=== PATIENT | male | born 1935 | race Caucasian/White ===

== ENCOUNTER 2016-10-01 10:00 | Outpatient (RCR) | payer MEDICARE, BC | END 2016-10-04 | disposition still patient (30) | LOC: WSPT | DX: G20 Parkinson's disease (principal) | CPT/HCPCS: G8978-GP; G8979-GP ==

== ENCOUNTER 2016-10-08 10:00 | Outpatient (RCR) | payer MEDICARE, BC | END 2016-10-08 14:58 | disposition home or self-care (01) | LOC: WSPT 10:00 | DX: G20 Parkinson's disease (principal) | CPT/HCPCS: G8978-GP; G8979-GP ==

== ENCOUNTER 2019-11-28 08:15 | Outpatient (RCR) | payer MEDICARE, BC ==
[~2019-11-28 08:15] MED LIST: ASPIRIN 81M81 MG/TA2 PO; COZAAR100 MG PO; GLUCOPHAGE500 MG/TAB PO; HUMALOG100 U/ML SQ; LANTUS SOLOS100 U/ML SQ; MASON NATURAL2000 IU PO; NEURONTIN300 MG/CAP PO; OMNICEF 300MG300 MG PO; SINEMET 25/101 UDTAB PO; TOPROL XL 25MG25 MG PO; TOPROL XL 50MG50 MG PO; VITAMIN B-1000 MCG/T PO; ZOCOR 40MG40 MG PO; ZYRTEC 10MG10 MG PO
== END 2020-02-05 | disposition home or self-care (01) ==
LOC: WSPT
DX: G20 Parkinson's disease (principal)

== ENCOUNTER 2020-05-07 14:37 | Emergency (ER) | payer MEDICARE, BC ==
[~2020-05-07] VITALS: Ht 172.7 cm; Wt 81.8 kg
[2020-05-07 14:42] VITALS: BP 171/81; TEMP 98.2
[2020-05-07 17:00] VITALS: PULSE 63
== END 2020-05-07 17:00 | disposition home or self-care (01) ==
LOC: COL.ER 14:37
DX: S01.01XA Laceration without foreign body of scalp, initial encounter (principal); S80.212A Abrasion, left knee, initial encounter; E11.9 Type 2 diabetes mellitus without complications; R40.2410 Glasgow coma scale score 13-15, unspecified time; I10 Essential (primary) hypertension; Z79.4 Long term (current) use of insulin; Z79.82 Long term (current) use of aspirin; W10.9XXA Fall (on) (from) unspecified stairs and steps, initial encounter

== ENCOUNTER → 2020-05-14 | Outpatient (CLI) | payer MEDICARE, BC ==
[2020-05-14 10:33] VITALS: BP 164/80; PULSE 76; TEMP 96.1
== END ==
LOC: COL.ER 10:22
DX: Z48.02 Encounter for removal of sutures (principal)

== ENCOUNTER 2020-12-13 22:58 | Emergency (ER) | payer MEDICARE, BC ==
[~2020-12-13] VITALS: Ht 172.7 cm; Wt 81.8 kg
[2020-12-13 23:09] VITALS: TEMP 96.6
[2020-12-13] MEDS ORDERED: DITROPAN XL15 MG PO (23:21)
[2020-12-13] MEDS ORDERED: COZAAR100 MG PO (23:22)
[2020-12-14 02:02] VITALS: BP 181/74; PULSE 76
== END 2020-12-14 02:02 ==
LOC: COL.ER 22:58
DX: S01.01XA Laceration without foreign body of scalp, initial encounter (principal); G20 Parkinson's disease; E11.9 Type 2 diabetes mellitus without complications; I10 Essential (primary) hypertension; Z79.4 Long term (current) use of insulin; Z79.82 Long term (current) use of aspirin; W01.198A Fall on same level from slipping, tripping and stumbling with subsequent striking against other object, initial encounter

== ENCOUNTER → 2020-12-23 | Outpatient (CLI) | payer MEDICARE, BC ==
[~2020-12-23] MED LIST changes: +CEPHALEXIN500 M1 PO; +DITROPAN XL15 MG PO
[2020-12-23 10:55] VITALS: BP 195/73; PULSE 60; TEMP 96.7
== END ==
LOC: COL.ER 10:49
DX: Z48.02 Encounter for removal of sutures (principal)

== ENCOUNTER 2021-01-13 08:15 | Emergency (ER) | payer MEDICARE, BC ==
[~2021-01-13] VITALS: Ht 167.6 cm; Wt 81.8 kg
[~2021-01-13 08:15] MED LIST changes: -CEPHALEXIN500 M1 PO
[2021-01-13 08:29] VITALS: TEMP 97.4
[2021-01-13 09:18] VITALS: BP 128/87; PULSE 60
== END 2021-01-13 09:18 | disposition home or self-care (01) ==
LOC: COL.ER 08:15
DX: S51.012A Laceration without foreign body of left elbow, initial encounter (principal); S51.811A Laceration without foreign body of right forearm, initial encounter; G20 Parkinson's disease; Z79.82 Long term (current) use of aspirin; Z79.4 Long term (current) use of insulin; W18.39XA Other fall on same level, initial encounter; Y92.002 Bathroom of unspecified non-institutional (private) residence as the place of occurrence of the external cause

== ENCOUNTER 2021-01-21 13:59 | Emergency (ER) | payer MEDICARE, BC ==
[~2021-01-21] VITALS: Ht 172.7 cm; Wt 81.8 kg
[2021-01-21 14:12] VITALS: BP 140/62; PULSE 62; TEMP 97.3
[2021-01-21] MEDS ORDERED: CEPHALEXIN500 M1 PO (15:04)
== END 2021-01-21 15:11 | disposition home or self-care (01) ==
LOC: COL.ER 13:59
DX: T81.41XA Infection following a procedure, superficial incisional surgical site, initial encounter (principal); G20 Parkinson's disease

== ENCOUNTER → 2021-01-26 | Outpatient (CLI) | payer MEDICARE, BC ==
[~2021-01-26] MED LIST changes: +CEPHALEXIN500 M1 PO
[2021-01-26 14:25] VITALS: BP 133/70; PULSE 88; TEMP 98.4
== END ==
LOC: COL.ER 14:16
DX: Z48.02 Encounter for removal of sutures (principal)

== ENCOUNTER → 2022-07-06 | Outpatient (CLI) | payer MEDICARE, BC | LOC: COL.RAD 12:42 | DX: G20 Parkinson's disease (principal); G31.84 Mild cognitive impairment of uncertain or unknown etiology; M48.07 Spinal stenosis, lumbosacral region ==

== ENCOUNTER 2022-12-10 08:55 | Day surgery (SDC) | payer MEDICARE, BC ==
[~2022-12-10] VITALS: Ht 172.7 cm; Wt 77.1 kg
[2022-12-10] VITALS (7 sets, daily range): BP systolic 128–167; BP diastolic 59–74; PULSE 56–67; TEMP 97–98.3
[~2022-12-10 08:55] MED LIST changes: +GNC L-ARGININE500 MG PO; +LIPITOR 40MG TA40 MG PO; +NOVOLIN 70/30 710 ML SQ; +PLAVIX 75MG TAB75 MG PO; +ZEBETA 5MG5 MG PO; +ZYRTEC10MGSGL PO
[2022-12-10] MEDS ORDERED: LUETIN PO (09:41)
[2022-12-10] MEDS ORDERED: NATURAL E400 IU PO (09:42)
[2022-12-10] MEDS ORDERED: MULTI VITAMINS1 TAB PO (09:42)
[2022-12-10] MEDS ORDERED: DEMADEX 20MG20 M1 PO (09:42)
--- NOTE | 2022-12-10 09:56 | NUR ---
Initial visit; Patient and his thanked Software Tools Developer for looking in on him and offering prayer for a successful surgical procedure and a rapid and thorough recovery.
[2022-12-10] MEDS ORDERED: NORCO 325 MG-51 TAB PO (12:39)
--- NOTE | 2022-12-10 18:31 | NUR ---
[id number] PT TO [facility] FROM OR S/P OPEN LEFT INGUINAL HERNIA PLACED ON MONITOR, VSS ON 6L MASK, RESPONDS TO LOUD VOICE, DENIES PAIN/COMPLAINT. OP DRSG CDI RECEIVED REPORT AND ASSUMED CARE OF PT FROM [facility] AND ORRN AND DTR BRIEFLY TO BEDSIDE, WILL RETURN TO [facility] [employer] PT UPON DC PROVIDED ICE WATER PER REQUEST, DECLINING FOOD. INCONTINENT - DRY DISPOSABLE BRIEFS DONNED. WEANED OFF MASK TO NC AT 1305 TO MAINTAIN SAO2 ORDERED, FURTHER WEANED TO RA AT 1350. PT A&OX4 BY 1345, CONTINUES TO DENY COMPLAINT, REMAINS ON MONITOR WITH CALL LIGHT WITHIN REACH AND BED LOW AND LOCKED. FAMILY CONTACTED WITH ESTIMATED TIME OF DC OF 1400, ARRIVED TO HOSPITAL ~1420 AND AT BEDSIDE. PT HAS REMAINED A&O, NAD, VSS ON RA, TOLERATING PO, IS WITHOUT SIGNIFICANT COMPLAINT, DRSG CDI THRU OUT [facility]. ABLE TO COOPERATE WITH GETTING DRESSED AND STANDS FOR TRANSFER TO . NEW BRIEFS DONNED, PERICARE ADMIN. IV D/C'D. D/C INSTRUCTIONS, FOLLOW UP APPT SCHEDULING NEEEDS REVIEWED WITH PT/FAMILY AND HANDED TO SAME. ALL QUESTIONS AND CONCERNS ADDRESSED TO PT SATISFACTION. TAKEN TO EXIT VIA W/C WITH ALL BELONGINGS AND PAPERWORK IN HAND, ASSISTED INTO PASSENGER SEAT OF POV BY [facility]. DTR TO DRIVE HOME.
== END 2022-12-10 14:45 | disposition home or self-care (01) ==
LOC: SDCO 08:55
DX: K40.90 Unilateral inguinal hernia, without obstruction or gangrene, not specified as recurrent (principal); I10 Essential (primary) hypertension
CPT/HCPCS: C1781; J0690; J2704; J7030

== ENCOUNTER 2023-11-26 11:34 | Emergency (ER) | payer MEDICARE, BC ==
[~2023-11-26] VITALS: Ht 172.7 cm; Wt 81.8 kg
[~2023-11-26 11:34] MED LIST changes: +DEMADEX 20MG20 M1 PO; +LUETIN PO; +MULTI VITAMINS1 TAB PO; +NATURAL E400 IU PO; +NORCO 325 MG-51 TAB PO
[2023-11-26 11:36] VITALS: TEMP 98.1
[2023-11-26 14:00] VITALS: BP 134/82; PULSE 58
== END 2023-11-26 14:18 | disposition home or self-care (01) ==
LOC: COL.ER 11:34
DX: S09.90XA Unspecified injury of head, initial encounter (principal); S01.01XA Laceration without foreign body of scalp, initial encounter; S61.411A Laceration without foreign body of right hand, initial encounter; Z79.01 Long term (current) use of anticoagulants; W18.30XA Fall on same level, unspecified, initial encounter; W22.8XXA Striking against or struck by other objects, initial encounter